=== PATIENT | male | born 1950 | race Caucasian/White ===

== ENCOUNTER 2021-10-24 08:55 | Inpatient (IN) ==
[2021-10-24] MEDS ORDERED: Naloxone 0.4 MG/ML INJ IVP PRN (10:53)
[2021-10-24] MEDS ORDERED: Furosemide 20 MG TABLET PO PRN (10:55)
[2021-10-24] MEDS ORDERED: Nitroglycerin 0.4 MG TAB.SUBL SL PRN (10:55)
[2021-10-24] MEDS ORDERED: Perflutren Lipid Microsphere 1.3 ML in 0.9 % Sodium Chloride 8.7 ML IVP PRN (12:02)
[2021-10-24 12:20] LABS: Basophils % 0.4 %; Eosinophils # 0.1 K/mcL (0.0-0.6); Eosinophils % 1.4 %; Hematocrit 44.8 % (37.5-50.1); Hemoglobin 14.7 g/dL (12.9-16.9); Immature Granulocytes % 0.3 % (0-4); Lymphocytes # 3.7 K/mcL (0.6-4.6); Lymphocytes % 38.3 %; Mean Corpuscular HGB Conc 32.8 g/dL (31.6-35.5); Mean Corpuscular Hemoglobin 31.4 pg (28.0-33.3); Mean Corpuscular Volume 95.7 fL (83.0-100.0); Mean Platelet Volume 10.4 fL (9.4-12.4); Monocytes # 0.5 K/mcL (0.0-1.3); Monocytes % 5.2 %; Neutrophils # 5.2 K/mcL (1.6-8.9); Platelet Count 268 K/mcL (140-400); Red Blood Count 4.68 M/mcL (4.19-5.50); Red Cell Distribution Width 13.9 % (11.5-14.5); Segmented Neutrophils % 54.4 %; White Blood Count 9.5 K/mcL (4.3-11.1)
[2021-10-24 12:34] LABS: Prothrombin Time 11.1 Seconds (9.4-12.1)
[2021-10-24 12:42] LABS: Alanine Aminotransferase 15 Units/L (7-52); Albumin 3.8 g/dL (3.5-5.7); Albumin/Globulin Ratio 1.1 (1.1-2.2); Alkaline Phosphatase 91 Units/L (34-104); Aspartate Amino Transferase 19 Units/L (13-39); BUN/Creatinine Ratio 11 (6-26); Bilirubin,Total 0.5 mg/dL (0.3-1.0); Blood Urea Nitrogen 11 mg/dL (8-23); Calcium 9.1 mg/dL (8.6-10.3); Carbon Dioxide 30 mEq/L (23-29); Chloride 104 mEq/L (98-107); Chol/HDL Ratio 2.9 (0-4.9); Cholesterol 137 mg/dL (< 200); Globulin 3.4 g/dL (2.4-3.5); Glucose 86 mg/dL (70-105); HDL Cholesterol 48 mg/dL (40-59); LDL Cholesterol,Calculated 68 mg/dL (< 100); Magnesium 2.1 mg/dL (1.6-2.6); Osmolality,Calculated 289 (280-300); Phosphorous 3.8 mg/dL (2.7-4.5); Sodium 140 mEq/L (136-145); Total Protein 7.2 g/dL (6.4-8.9); Triglycerides 107 mg/dL (< 150); eGFR For African Americans > 60 (> 60); eGFR For Non-African Americans > 60 (> 60)
[2021-10-24 13:37] LABS: Estimated Average Glucose 114 mg/dl; Hemoglobin A1C 5.6 %
[2021-10-24] MEDS: Tiotropium 10 INH DOSE IH SCH (15:23)
[2021-10-24] MEDS: Gabapentin 300 MG CAPSULE PO SCH ×2 (16:02→20:59)
[2021-10-24] MEDS: QUEtiapine Fumarate 300 MG TABLET PO SCH (20:59)
[2021-10-25] MEDS ORDERED: Regadenoson 0.4 MG/5 ML SYRINGE IVP ONE (06:35)
[2021-10-25] MEDS: lisinopriL 5 MG TABLET PO SCH ×2 (10:05→10:58)
[2021-10-25] MEDS: Aspirin Enteric Coated 81 MG Tablet PO SCH ×2 (10:05→11:00)
[2021-10-25] MEDS: Gabapentin 300 MG CAPSULE PO SCH ×4 (10:05→22:01)
[2021-10-25] MEDS: FLUoxetine 20 MG CAPSULE PO SCH ×2 (10:05→10:57)
[2021-10-25] MEDS: Tiotropium 10 INH DOSE IH SCH (10:12)
[2021-10-25] MEDS: QUEtiapine Fumarate 300 MG TABLET PO SCH (20:51)
[2021-10-26 05:36] LABS: BUN/Creatinine Ratio 21 (6-26); Blood Urea Nitrogen 25 mg/dL (8-23); Calcium 8.8 mg/dL (8.6-10.3); Carbon Dioxide 28 mEq/L (23-29); Chloride 108 mEq/L (98-107); Glucose 102 mg/dL (70-105); Osmolality,Calculated 295 (280-300); Potassium 4.1 mEq/L (3.5-5.1); Sodium 140 mEq/L (136-145); eGFR For African Americans > 60 (> 60); eGFR For Non-African Americans 59 (> 60)
[2021-10-26] MEDS: Tiotropium 10 INH DOSE IH SCH (08:00)
[2021-10-26] MEDS: FLUoxetine 20 MG CAPSULE PO SCH (09:26)
[2021-10-26 09:27] LABS: Basophils % 0.3 %; Eosinophils # 0.3 K/mcL (0.0-0.6); Hematocrit 42.5 % (37.5-50.1); Hemoglobin 13.9 g/dL (12.9-16.9); Immature Granulocytes % 0.3 % (0-4); Lymphocytes # 2.1 K/mcL (0.6-4.6); Lymphocytes % 15.9 %; Mean Corpuscular HGB Conc 32.7 g/dL (31.6-35.5); Mean Corpuscular Hemoglobin 31.7 pg (28.0-33.3); Mean Platelet Volume 10.9 fL (9.4-12.4); Monocytes # 0.8 K/mcL (0.0-1.3); Monocytes % 5.7 %; Neutrophils # 10.1 K/mcL (1.6-8.9); Platelet Count 233 K/mcL (140-400); Red Blood Count 4.38 M/mcL (4.19-5.50); Red Cell Distribution Width 13.9 % (11.5-14.5); Segmented Neutrophils % 75.8 %; White Blood Count 13.3 K/mcL (4.3-11.1)
[2021-10-26] MEDS: Gabapentin 300 MG CAPSULE PO SCH ×3 (09:27→23:03)
[2021-10-26] MEDS: Aspirin Enteric Coated 81 MG Tablet PO SCH (09:27)
[2021-10-26 09:46] LABS: BUN/Creatinine Ratio 21 (6-26); Blood Urea Nitrogen 24 mg/dL (8-23); Calcium 8.7 mg/dL (8.6-10.3); Carbon Dioxide 28 mEq/L (23-29); Chloride 104 mEq/L (98-107); Glucose 118 mg/dL (70-105); Osmolality,Calculated 289 (280-300); Potassium 4.1 mEq/L (3.5-5.1); Sodium 137 mEq/L (136-145); eGFR For African Americans > 60 (> 60); eGFR For Non-African Americans > 60 (> 60)
[2021-10-26] MEDS ORDERED: Polymyxin B Sulfate 500,000 UNIT, Sodium Chloride IRRigation 1,000 ML IR ONE (11:35)
[2021-10-26] MEDS ORDERED: 0.9 % Sodium Chloride 2,000 ML ONE (13:16)
[2021-10-26] MEDS ORDERED: Nitroglycerin 1,000 MCG/5 ML VIAL IV ONE (13:17)
[2021-10-26] MEDS ORDERED: *HR* Heparin 10,000 UNIT/10 ML VIAL ONE (13:17)
[2021-10-26] MEDS ORDERED: Heparin 1,000 UNITS/500 mL 500 ML ONE (13:17)
[2021-10-26] MEDS ORDERED: ISOVUE-370 200 ML INFUS..BTL ONE (13:17)
[2021-10-26] MEDS ORDERED: *HR* Midazolam HCl 2 MG/2 ML VIAL ONE (13:29)
[2021-10-26] MEDS ORDERED: *HR* FentaNYL (PF) 100 MCG/2 ML VIAL ONE (13:29)
[2021-10-26] MEDS: QUEtiapine Fumarate 300 MG TABLET PO SCH (23:03)
[2021-10-27 04:53] LABS: Basophils % 0.3 %; Eosinophils # 0.2 K/mcL (0.0-0.6); Eosinophils % 2.2 %; Hematocrit 37.3 % (37.5-50.1); Immature Granulocytes % 0.4 % (0-4); Lymphocytes # 3.3 K/mcL (0.6-4.6); Lymphocytes % 32.2 %; Mean Corpuscular HGB Conc 32.2 g/dL (31.6-35.5); Mean Corpuscular Hemoglobin 31.3 pg (28.0-33.3); Mean Corpuscular Volume 97.1 fL (83.0-100.0); Mean Platelet Volume 11.2 fL (9.4-12.4); Monocytes # 0.7 K/mcL (0.0-1.3); Monocytes % 6.8 %; Neutrophils # 5.9 K/mcL (1.6-8.9); Platelet Count 207 K/mcL (140-400); Red Blood Count 3.84 M/mcL (4.19-5.50); Segmented Neutrophils % 58.1 %; White Blood Count 10.2 K/mcL (4.3-11.1)
[2021-10-27 05:08] LABS: Alanine Aminotransferase 10 Units/L (7-52); Albumin 3.3 g/dL (3.5-5.7); Albumin/Globulin Ratio 1.3 (1.1-2.2); Alkaline Phosphatase 73 Units/L (34-104); Aspartate Amino Transferase 11 Units/L (13-39); BUN/Creatinine Ratio 23 (6-26); Bilirubin,Total 0.3 mg/dL (0.3-1.0); Blood Urea Nitrogen 26 mg/dL (8-23); Calcium 8.4 mg/dL (8.6-10.3); Carbon Dioxide 26 mEq/L (23-29); Chloride 108 mEq/L (98-107); Globulin 2.6 g/dL (2.4-3.5); Glucose 119 mg/dL (70-105); Osmolality,Calculated 294 (280-300); Potassium 4.2 mEq/L (3.5-5.1); Sodium 139 mEq/L (136-145); Total Protein 5.9 g/dL (6.4-8.9); eGFR For African Americans > 60 (> 60); eGFR For Non-African Americans > 60 (> 60)
[2021-10-27] MEDS: Tiotropium 10 INH DOSE IH SCH (07:50)
[2021-10-27] MEDS: Gabapentin 300 MG CAPSULE PO SCH ×3 (08:02→20:59)
[2021-10-27] MEDS: Aspirin Enteric Coated 81 MG Tablet PO SCH (08:02)
[2021-10-27] MEDS: FLUoxetine 20 MG CAPSULE PO SCH (08:02)
[2021-10-27] MEDS: QUEtiapine Fumarate 300 MG TABLET PO SCH (20:59)
[2021-10-28] MEDS: Tiotropium 10 INH DOSE IH SCH (08:05)
[2021-10-28] MEDS: FLUoxetine 20 MG CAPSULE PO SCH (09:12)
[2021-10-28] MEDS: Aspirin Enteric Coated 81 MG Tablet PO SCH (09:13)
[2021-10-28] MEDS: Gabapentin 300 MG CAPSULE PO SCH (09:13)
[2021-10-28] MEDS ORDERED: CeFAZolin Syr 2,000MG/20 ML 2,000 MG/20 ML SYRINGE IVPB ONE (12:38)
[2021-10-28] MEDS ORDERED: Ringers Solution, Lactated 1,000 ML IVC SCH (12:45)
[2021-10-28] MEDS ORDERED: *HR* Propofol 200 MG/20 ML VIAL IVP ONE ×2 (13:02→18:39)
[2021-10-28] MEDS ORDERED: *HR* Midazolam HCl 2 MG/2 ML VIAL ONE (13:02)
[2021-10-28] MEDS ORDERED: *HR* FentaNYL (PF) 100 MCG/2 ML VIAL ONE (13:02)
[2021-10-28] MEDS ORDERED: Ondansetron 4 MG/2 ML VIAL ONE (13:03)
[2021-10-28] MEDS ORDERED: Lidocaine HCL 4 ML Topical Solution (Laryng-O-Jet Kit Sterile Pak) TP ONE (13:03)
[2021-10-28] MEDS ORDERED: *HR* Succinylcholine 200 MG/10 ML VIAL IVP ONE (13:03)
[2021-10-28] MEDS ORDERED: *HR* Rocuronium Bromide 50 MG/5 ML VIAL ONE (13:03)
[2021-10-28] MEDS ORDERED: Lidocaine -MPF 2% 2 ML VIAL ONE (13:03)
[2021-10-28] MEDS ORDERED: *HR* Remifentanil 2 MG VIAL IVP ONE (13:05)
[2021-10-28] MEDS ORDERED: *HR* Phenylephrine 10 MG/ML VIAL ONE (13:06)
[2021-10-28] MEDS ORDERED: *HR* FentaNYL (PF) 100 MCG/2 ML VIAL IVP PRN (13:46)
[2021-10-28] MEDS ORDERED: *HR* Labetalol 20 MG/4 ML SYRINGE IVP PRN (13:46)
[2021-10-28] MEDS ORDERED: Ondansetron 4 MG/2 ML VIAL IVP PRN ×2 (13:46→20:27)
[2021-10-28] MEDS ORDERED: Albuterol 2.5 MG/3 ML NEBULIZER IH PRN (13:46)
[2021-10-28] MEDS ORDERED: *HR* HYDROmorphone PF 0.5 MG/0.5 ML SYRINGE IVP PRN (13:46)
[2021-10-28] MEDS ORDERED: *HR* OxyCODONE Immed Rel 5 MG TABLET PO PRN (13:46)
[2021-10-28] MEDS ORDERED: Ipratropium Neb 0.5 MG NEBULIZER IH PRN (13:46)
[2021-10-28] MEDS ORDERED: Polymyxin B Sulfate 500,000 UNIT, Sodium Chloride IRRigation 1,000 ML IR ONE (14:00)
[2021-10-28] MEDS ORDERED: EPHEDrine 50 MG/ML VIAL ONE (14:14)
[2021-10-28] MEDS ORDERED: Ketamine HCL *QUVA* 50mg (1mL) SYRINGE ONE (15:24)
[2021-10-28] MEDS ORDERED: Vancomycin 1,000 MG VIAL ONE (15:26)
[2021-10-28] MEDS ORDERED: *HR* Magnesium Sulfate 1 GM/2 ML VIAL ONE (15:34)
[2021-10-28] MEDS ORDERED: tiZANidine 4 MG TABLET PO SCH (18:00)
[2021-10-28] MEDS ORDERED: *HR* Remifentanil 1 MG VIAL IVP ONE (18:26)
[2021-10-28] MEDS ORDERED: *HR* HYDROMORPHONE 2 MG/ML VIAL ONE (19:17)
[2021-10-28] MEDS ORDERED: Naloxone 0.4 MG/ML INJ IVP PRN (20:27)
[2021-10-28] MEDS: Gabapentin 400 MG CAPSULE PO SCH (21:33)
[2021-10-28] MEDS: Ringers Solution, Lactated 1,000 ML IVC SCH (21:33)
[2021-10-28] MEDS: *HR* HYDROcodone/Acet 5/325 mg TABLET PO PRN (22:41)
[2021-10-28] MEDS: CeFAZolin 2 GM/120 ML BAG IVPB SCH (23:31)
[2021-10-29] MEDS: *HR* OxyCODONE Immed Rel 5 MG TABLET PO PRN ×3 (01:47→20:18)
[2021-10-29 05:49] LABS: BUN/Creatinine Ratio 20 (6-26); Blood Urea Nitrogen 18 mg/dL (8-23); Calcium 8.1 mg/dL (8.6-10.3); Carbon Dioxide 27 mEq/L (23-29); Chloride 105 mEq/L (98-107); Glucose 174 mg/dL (70-105); Osmolality,Calculated 290 (280-300); Potassium 4.3 mEq/L (3.5-5.1); Sodium 137 mEq/L (136-145); eGFR For African Americans > 60 (> 60); eGFR For Non-African Americans > 60 (> 60)
[2021-10-29] MEDS: *HR* HYDROcodone/Acet 5/325 mg TABLET PO PRN ×3 (06:51→23:31)
[2021-10-29] MEDS: Gabapentin 400 MG CAPSULE PO SCH ×3 (09:56→20:18)
[2021-10-29] MEDS: CeFAZolin 2 GM/120 ML BAG IVPB SCH (14:48)
[2021-10-29] MEDS: Acetaminophen 325 MG TABLET PO PRN (16:38)
[2021-10-30] MEDS: Gabapentin 400 MG CAPSULE PO SCH ×3 (09:25→21:19)
[2021-10-30] MEDS: *HR* OxyCODONE Immed Rel 5 MG TABLET PO PRN ×3 (09:26→22:12)
[2021-10-30] MEDS: MOM Conc 10 ML UD.LIQ PO SCH (21:19)
[2021-10-30] MEDS: *HR* HYDROcodone/Acet 5/325 mg TABLET PO PRN (21:23)
[2021-10-31] MEDS: *HR* HYDROcodone/Acet 5/325 mg TABLET PO PRN ×2 (03:35→22:27)
[2021-10-31] MEDS: Gabapentin 300 MG CAPSULE PO SCH (08:19)
[2021-10-31] MEDS: Ringers Solution, Lactated 1,000 ML IVC SCH ×4 (08:20→12:41)
[2021-10-31] MEDS: Gabapentin 400 MG CAPSULE PO SCH ×3 (09:19→21:15)
[2021-10-31] MEDS: MOM Conc 10 ML UD.LIQ PO SCH (09:19)
[2021-10-31] MEDS: *HR* OxyCODONE Immed Rel 5 MG TABLET PO PRN ×2 (09:32→17:19)
[2021-11-01] MEDS: *HR* OxyCODONE Immed Rel 5 MG TABLET PO PRN ×3 (01:25→17:41)
[2021-11-01] MEDS: MOM Conc 10 ML UD.LIQ PO SCH (09:23)
[2021-11-01] MEDS: Gabapentin 400 MG CAPSULE PO SCH ×3 (09:23→21:17)
[2021-11-01] MEDS: *HR* HYDROcodone/Acet 5/325 mg TABLET PO PRN ×2 (14:54→22:17)
[2021-11-01] MEDS: polyethylene glycoL 3350 17 GM POWD.PACK PO SCH (17:41)
[2021-11-01] MEDS: Bisacodyl 10 MG RECTAL SUPPOSITORY RC SCH (17:41)
[2021-11-01] MEDS: Sennosides/Docusate Sodium TABLET PO SCH (21:17)
[2021-11-02] MEDS: *HR* OxyCODONE Immed Rel 5 MG TABLET PO PRN ×3 (00:09→17:58)
[2021-11-02] MEDS: MOM Conc 10 ML UD.LIQ PO SCH (08:21)
[2021-11-02] MEDS: polyethylene glycoL 3350 17 GM POWD.PACK PO SCH (08:21)
[2021-11-02] MEDS: Sennosides/Docusate Sodium TABLET PO SCH ×2 (08:21→20:16)
[2021-11-02] MEDS: Gabapentin 400 MG CAPSULE PO SCH ×3 (08:22→20:17)
[2021-11-02] MEDS: Bisacodyl 10 MG RECTAL SUPPOSITORY RC SCH (09:00)
[2021-11-02] MEDS: *HR* HYDROcodone/Acet 5/325 mg TABLET PO PRN ×2 (14:05→20:17)
[2021-11-02] MEDS: Menthol 1 EACH LOZENGE PO PRN ×2 (14:09→16:59)
[2021-11-02] MEDS: diazePAM 10 MG TABLET PO PRN (20:17)
[2021-11-03] MEDS: *HR* OxyCODONE Immed Rel 5 MG TABLET PO PRN ×3 (05:22→22:12)
[2021-11-03] MEDS: diazePAM 10 MG TABLET PO PRN ×2 (05:22→22:12)
[2021-11-03] MEDS: MOM Conc 10 ML UD.LIQ PO SCH (08:02)
[2021-11-03] MEDS: Sennosides/Docusate Sodium TABLET PO SCH ×2 (08:02→22:09)
[2021-11-03] MEDS: Gabapentin 400 MG CAPSULE PO SCH ×3 (08:03→22:09)
[2021-11-03] MEDS: polyethylene glycoL 3350 17 GM POWD.PACK PO SCH (08:03)
[2021-11-03] MEDS: Bisacodyl 10 MG RECTAL SUPPOSITORY RC SCH (09:31)
[2021-11-03] MEDS: *HR* HYDROcodone/Acet 5/325 mg TABLET PO PRN ×2 (10:38→19:33)
[2021-11-03] MEDS: Menthol 1 EACH LOZENGE PO PRN (10:38)
[2021-11-04] MEDS: Acetaminophen 325 MG TABLET PO PRN (00:52)
[2021-11-04] MEDS: *HR* OxyCODONE Immed Rel 5 MG TABLET PO PRN (05:34)
[2021-11-04] MEDS: Sennosides/Docusate Sodium TABLET PO SCH (08:14)
[2021-11-04] MEDS: MOM Conc 10 ML UD.LIQ PO SCH (08:15)
[2021-11-04] MEDS: polyethylene glycoL 3350 17 GM POWD.PACK PO SCH (08:15)
[2021-11-04] MEDS: Gabapentin 400 MG CAPSULE PO SCH ×2 (08:15→17:50)
[2021-11-04 15:02] VITALS: BP 178/61; PULSE 99; TEMP 99.1; O2SAT 92
[2021-11-04 17:03] LABS: Influenza A PCR Negative (Negative); Influenza B PCR Negative (Negative); Resp. Syncytial Virus PCR Negative (Negative)
[2021-11-04 17:31] LABS: SARS-CoV-2 by PCR (In House) Negative (Negative)
== END 2021-11-04 18:21 | DRG 304 ==
LOC: 4WAOSI
PROVIDERS: ADMIT Orthopaedic Surgery Orthopaedic Surgery of the Spine; ATTEND Orthopaedic Surgery Orthopaedic Surgery of the Spine